=== PATIENT | male | born 1955 | race Caucasian/White ===

== ENCOUNTER 2016-09-06 15:58 | Inpatient (IN) | payer OTHER ==
[~2016-09-06] VITALS: Ht 165.1 cm; Wt 71.7 kg
[~2016-09-06 15:58] MED LIST: ASPIRIN81 M1 PO; CIPRO500 MG PO; ECOTRIN81 MG PO; ELAVIL25 MG PO; GLUCOPHAGE500 MG PO; LIORESAL10 MG PO; LOPRESSOR25 MG PO; MOBIC15 MG PO; NAPROSYN500 MG PO; NEURONTIN100 MG PO; NORCO 325 MG-51 TAB PO; PRILOSEC40 MG PO; TRENTAL400 M1 PO; ULTRAM50 MG PO
[2016-09-06 16:59] VITALS: BP 83/56
[2016-09-06] MEDS ORDERED: NACL 0.9% 1,000 ML IV SCH (17:06)
--- NOTE | 2016-09-06 17:06 | NUR ---
Patient to bed 7 at this time.
[2016-09-06] MEDS ORDERED: METOCLOPRAMIDE 10 MG/2 ML INJ VIAL IVP ONE (17:10)
--- NOTE | 2016-09-06 17:10 | NUR ---
PT PRESENTS TO ER W/C/O ABDOMINAL PAIN/WEAKNESS X15 DAYS. HX HTN, DM.PT STATES N/V; SKIN IS PINK/WARM/DRY; AAOX4 WITH EVEN AND STEADY GAIT; LUNGS CLEAR BL; HR EVEN AND REGULAR; PT DENIES ANY FEVER, CP, SOB, OR COUGH AT THIS TIME; PATIENT STATES PAIN OF 0/10 AT THIS TIME; PATIENT POSITIONED FOR COMFORT; HOB ELEVATED; BEDRAILS UP X2; BED DOWN. ER MD MADE AWARE OF PT STATUS.
[2016-09-06] MEDS ORDERED: NACL 0.9% 1,000 ML IV ONE (18:00)
[2016-09-06] MEDS ORDERED: ONDANSETRON 4 MG/2 ML VIAL IVP PRN (18:50)
[2016-09-06] MEDS ORDERED: LORazepam 2 MG/ML VIAL IVP PRN (18:50)
--- NOTE | 2016-09-06 18:50 | NUR ---
PT TAKEN TO CT VIA W/C ACCOMPANIED BY ENVIRONMENTAL ENGINEERING TECHNICIAN
--- NOTE | 2016-09-06 18:51 | NUR ---
GAVE REPORT TO AMA LEIGH
--- NOTE | 2016-09-06 19:22 | NUR ---
Patient will be admitted to care of DR JOHNSON. Admited to MS. Will go to [id number]. Belongings list completed. Report to AMA LEIGH.
--- NOTE | 2016-09-06 19:55 | NUR ---
PATIENT IS CURRENTLY AWAKE ALERT ORIENTED RESTING IN BED NO COMPLAINS OF PAIN OR DISCOMFORT ADMIT DX PANCREATITIS AND SKIN CHECK WAS DONE AND HIS SKIN IS INTACT NO SKIN BREAKDOWN NOTED.PATIENT AND FAMILY ORIENTED TO ROOM AND CALL LIGHT AND VISITING HOURS AND THEY VERBALIZE UNDERSTANDING.PLAN OF CARE DISCUSSED WITH THE PATIENT.CALL LIGHT WITHIN REACH.WILL CONTINUE TO MONITOR.
[2016-09-06 20:00] VITALS: BP 117/72
--- NOTE | 2016-09-06 20:00 | NUR ---
Patient's Plan of Care was discussed and reviewed with SALESPERSON WOMEN'S DRESSES: YONY PAULSON
[2016-09-06] MEDS ORDERED: INSULIN LISPRO SLIDING SCALE 100 UNITS/ML VIAL SUBQ PRN (21:15)
[2016-09-06] MEDS ORDERED: DEXTROSE 50% 50 ML SYR IVP PRN (21:15)
--- NOTE | 2016-09-06 22:30 | NUR ---
PATIENT RESTING IN BED DENIES PAIN WATCHING TV NO PAIN OR DISCOMFORT NOTED.WILL CONTINUE TO MONITOR.
--- NOTE | 2016-09-06 23:15 | NUR ---
MD BETANCOURT CALLED BACK AND HE WAS INFORMED THAT PATIENT WILL BE NPO BUT I SUGGESTED TO MD IF HE WOULD LIKE TO ORDER SOME IVF ON THE PATIENT AND I ALSO MADE SURE MD IS AWARE OF PATIENT SODIUM 135 AND POTASSIUM OF 5.8. MD IS AWARE AND GAVE ORDERS.WILL ORDER AND CARRY OUT.
[2016-09-07 00:30] VITALS: BP 95/58
--- NOTE | 2016-09-07 00:30 | NUR ---
PATIENT SLEEPING IN BED WAS GIVEN A WARM BLANKET REQUESTED BY THE PATIENT.PATIENT NEEDS MET ENCOURAGED TO ASK FOR ASSISTANCE NEEDED PT VERBALIZES UNDERSTANDING.CALL LIGHT WITHIN REACH WILL CONTINUE TO MONITOR.
[2016-09-07] MEDS: BLOOD GLUCOSE MONITORING 1 DEV DEV FS SCH ×4 (00:52→18:05)
--- NOTE | 2016-09-07 02:54 | NUR ---
PATIENT SLEEPING WELL IN BED NO DISTRESS,IVF INFUSING WELL IV SITE PATENT NO COMPLAINS OF PAIN.WILL CONTINUE TO MONITOR.CALL LIGHT WITHIN REACH.
--- NOTE | 2016-09-07 04:00 | NUR ---
PATIENT IS SLEEPING IN BED AT THIS TIME NO DISTRESS IVF INFUSING WELL IV SITE PATENT.
--- NOTE | 2016-09-07 06:05 | NUR ---
PATIENT IS CURRENTLY NPO AND IS RESTING IN BED NO COMPLAINS OF PAIN,IVF INFUSING WELL IV SITE PATENT.
[2016-09-07] MEDS ORDERED: NACL 0.9% 1,000 ML IV SCH (06:40)
--- NOTE | 2016-09-07 06:48 | NUR ---
PATIENT HAS BEEN SCREENED AND CATEGORIZED HIGH NUTRITION RISK. PATIENT WILL BE SEEN WITHIN 1-2 DAYS OF ADMISSION. 09/07/16-09/08/16 NAYELY YAN MS, RDN
--- NOTE | 2016-09-07 07:15 | NUR ---
RECEIVED PATIENT REPORT AT BEDSIDE. PATIENT AWAKE, ALERT AND ORIENTED. NO S/S OF DISTRESS NOTED. PATIENT PRIMARILY SPEAKS CZECH. PATIENT ON ROOM AIR. NO C/O PAIN AT THIS TIME. IV LINE TO THE LEFT AC INTACT WITH IVF INFUSING WELL. BED LOWERED WITH CALL WITHIN REACH. WILL CONTINUE TO MONITOR
--- NOTE | 2016-09-07 07:27 | NUR ---
PATIENT STABLE REPORT ENDORSED AT BEDSIDE TO AMA BARR.
[2016-09-07 08:00] VITALS: BP 103/62
[2016-09-07] MEDS: ENOXAPARIN 40 MG/0.4 ML SYR SUBQ SCH (08:13)
[2016-09-07] MEDS ORDERED: HYDROmorphone 1 MG/ML AMP IVP PRN (08:25)
--- NOTE | 2016-09-07 09:30 | NUR ---
PATIENT ASLEEP IN BED. NO S/S OF DISTRESS NOTED
[2016-09-07] MEDS ORDERED: HYDROcodone/APAP 10/325 MG 1 TAB TAB PO PRN (11:30)
--- NOTE | 2016-09-07 11:50 | NUR ---
09/07/16 RD INITIAL ASSESSMENT COMPLETED PLEASE REFER TO NUTRITION ASSESSMENT UNDER CARE ACTIVITY FOR ESTIMATED NUTRITIONAL NEEDS. RD RECOMMENDATIONS: 1. CONTINUE ON NPO APPROPRIATE 2. WHEN MEDICALLY APPROPRIATE, CONSIDER INITIATING CCHO 60 GM DIET. 3. RDN TO PROVIDE DIABETES EDUCATION TO PATIENTS , HANDOUT PROVIDED. 4. RD WILL F/U 5-7 DAYS; LOW RISK. NAYELY YAN MS, RDN
[2016-09-07] MEDS: DEXT 5% / NACL 0.9% 1,000 ML IV SCH ×2 (12:48→22:00)
--- NOTE | 2016-09-07 13:51 | NUR ---
PATIENT COMFORTABLY RESTING IN BED, WATCHING TELEVISION. NO S/S OF DISTRESS NOTED
[2016-09-07 16:00] VITALS: BP 121/77
--- NOTE | 2016-09-07 16:00 | NUR ---
PATIENT IN BED WATCHING TELEVISION. NO S/S OF DISTRESS NOTED. PATIENT'S AND DAUGHTER PRESENT AT BEDSIDE
--- NOTE | 2016-09-07 19:18 | NUR ---
PATIENT REPORT GIVEN AT BEDSIDE. PATIENT ENDORSED IN STABLE CONDITION
--- NOTE | 2016-09-07 19:19 | NUR ---
PATIENT IS CURRENTLY AWAKE ALERT ORIENTED DENIES ANY PAIN.IVF INFUSING WELL IV SITE PATENT NO INFILTRATION NOTED.PATIENT CONTINUES TO BE NPO.CALL LIGHT WITHIN REACH WILL CONTINUE TO MONITOR.
[2016-09-07 20:40] VITALS: BP 114/60
--- NOTE | 2016-09-07 20:53 | NUR ---
PATIENT STABLE WATCHING TV. WAS MEDICATED FOR MILD-MODERATE PAIN WILL CONTINUE TO REASSESS PAIN LEVEL.
--- NOTE | 2016-09-07 21:00 | NUR ---
Patient's Plan of Care was discussed and reviewed with MILITARY COMMUNICATIONS SPECIALIST: YONY PAULSON
--- NOTE | 2016-09-07 21:54 | NUR ---
PATIENT IS CURRENTLY SLEEPING AT THIS TIME. PAIN MEDICATION EFFECTIVE.IVF INFUSING WELL,IV SITE PATENT.CALL LIGHT WITHIN REACH.
[2016-09-08] VITALS: BP 93/52
[2016-09-08] MEDS: BLOOD GLUCOSE MONITORING 1 DEV DEV FS SCH ×3 (00:29→11:17)
--- NOTE | 2016-09-08 00:30 | NUR ---
ACCUCHECK DONE BS 117 PATIENT IS CURRENTLY RESTING IN BED.IVF INFUSING WELL.CALL LIGHT WITHIN REACH.WILL CONTINUE TO MONITOR.
--- NOTE | 2016-09-08 02:19 | NUR ---
PATIENT IS CURRENTLY SLEEPING IVF INFUSING WELL IV SITE PATENT CALL LIGHT WITHIN REACH WILL CONTINUE TO MONITOR.
--- NOTE | 2016-09-08 04:25 | NUR ---
PATIENT IS CURRENTLY SLEEPING IVF INFUSING WELL IV SITE PATENT NO PAIN OR DISCOMFORT.CALL LIGHT WITHIN REACH.
--- NOTE | 2016-09-08 06:15 | NUR ---
PATIENT SLEEPING IN BED NO DISTRESS.
[2016-09-08] MEDS: DEXT 5% / NACL 0.9% 1,000 ML IV SCH (06:45)
--- NOTE | 2016-09-08 07:05 | NUR ---
RECEIVED REPORT FROM NIGHT NURSE. PT IS AAOX4. PT IS ON ROOM AIR. PT SHOWS NO S/S OF DISTRESS. PT DENIES PAIN. SKIN IS INTACT. IV NOTED ON THE L AC PATENT AND INTACT. WILL CONTINUE TO MONITOR.
--- NOTE | 2016-09-08 07:15 | NUR ---
PATIENT STABLE REPORT ENDORSED TO AMA BARR AND AMA LAU.
[2016-09-08 07:56] VITALS: BP 104/64
[2016-09-08] MEDS ORDERED: FAMOTIDINE 20 MG TAB PO SCH (09:00)
--- NOTE | 2016-09-08 09:30 | NUR ---
ADMINISTERED SCHEDULED MEDICATIONS. PT TOLERATED WELL. PT SHOWS NO S/S OF DISTRESS. WILL CONTINUE TO MONITOR.
[2016-09-08] MEDS: ENOXAPARIN 40 MG/0.4 ML SYR SUBQ SCH (09:38)
--- NOTE | 2016-09-08 11:25 | NUR ---
PT HAS VISITOR. PT IN BED WITH CALL LIGHT WITHIN REACH. WILL CONTINUE TO MONITOR.
--- NOTE | 2016-09-08 13:00 | NUR ---
PT IN BED RESTING WATCHING TV. PT SHOWS NO S/S OF DISTRESS. WILL CONTINUE TO MONITOR.
--- NOTE | 2016-09-08 15:45 | NUR ---
PT HAS BEEN DISCHARGED. ALL PAPERWORK SIGNED. ALL QUESTIONS ANSWERED. ALL BELONGINGS IN PATIENT'S POSSESSION. IV DISCONTINUED WITH CANNULA INTACT. PT AMB OFF UNIT WITH STEADY GAIT WITH FAMILY MEMBER PRESENT AT SIDE. PT IN STABLE CONDITION, DENIES PAIN, AND SHOWS NO S/S OF DISTRESS.
== END 2016-09-08 15:45 | disposition home or self-care (01) | DRG 440 ==
LOC: MED 15:58 → MTU 18:49
PROVIDERS: ADMIT Hospitalist; ATTEND Hospitalist
DX: K85.90 Acute pancreatitis without necrosis or infection, unspecified (principal); E11.9 Type 2 diabetes mellitus without complications; I10 Essential (primary) hypertension; E78.00 Pure hypercholesterolemia, unspecified; E78.5 Hyperlipidemia, unspecified; Z79.899 Other long term (current) drug therapy; Z87.891 Personal history of nicotine dependence

== ENCOUNTER 2017-02-14 11:35 | Emergency (ER) | payer OTHER ==
[~2017-02-14] VITALS: Ht 157.5 cm; Wt 73.5 kg
[2017-02-14 11:39] VITALS: BP 123/82
--- NOTE | 2017-02-14 11:39 | NUR ---
notified, called into triage to eval pt
[2017-02-14] MEDS ORDERED: ONDANSETRON 4 MG/2 ML VIAL IM ONE (11:55)
[2017-02-14] MEDS ORDERED: HYDROmorphone PFS 2 MG/ML SYR IM ONE (11:55)
[2017-02-14] MEDS ORDERED: ceFAZolin 1,000 MG VIAL IM ONE (12:05)
--- NOTE | 2017-02-14 12:06 | NUR ---
PATIENT PRESENTS TO ED WITH od trauma . PT STATES . DENIES N/V/D; SKIN IS PINK/WARM/DRY; AAOX4 WITH EVEN AND STEADY GAIT; LUNGS CLEAR BL; HR EVEN AND REGULAR; PT DENIES ANY FEVER, CP, SOB, OR COUGH AT THIS TIME; PATIENT STATES PAIN OF 10/10 AT THIS TIME; VSS ER MD MADE AWARE OF PT STATUS.
--- NOTE | 2017-02-14 12:10 | NUR ---
[facility]oster puga in [facility] - 02/14/17 at 1225 by DENNIS PATIENT AMBULATED WITH ASSISTANCE.
--- NOTE | 2017-02-14 12:10 | NUR ---
PT AMBULATED WITH ASSISTANCE TO BED 6.
[2017-02-14] MEDS ORDERED: WATER STERILE 10 ML MC ONE (12:18)
[2017-02-14 12:35] VITALS: BP 123/82
--- NOTE | 2017-02-14 12:38 | NUR ---
PT TAKEN BY VICKY VIA EDILMA TRANSFER TO [facility] FOR HIGHER LEVEL OF CARE
--- NOTE | 2017-02-14 12:47 | NUR ---
REPORT GIVEN TO AMA OLIVIER AT [facility] ER, RECIEVING PHYSICIAN DR HARRIS
== END 2017-02-14 12:47 | disposition short-term general hospital (02) ==
LOC: MED 11:35
DX: S05.31XA Ocular laceration without prolapse or loss of intraocular tissue, right eye, initial encounter (principal); J45.909 Unspecified asthma, uncomplicated; E11.9 Type 2 diabetes mellitus without complications; I10 Essential (primary) hypertension; X58.XXXA Exposure to other specified factors, initial encounter; Y93.89 Activity, other specified; Y92.89 Other specified places as the place of occurrence of the external cause; Y99.8 Other external cause status
CPT/HCPCS: 96372; 99285; J0690; J1170; J2405